=== PATIENT | female | born 1980 | race American Indian/Alaskan Native ===

== ENCOUNTER 2017-07-02 23:55 | Emergency (ER) | payer SELFPAY ==
[2017-07-03 00:01] VITALS: BP 93/74
[2017-07-03 01:02] LABS: HCG Qualitative,Urine Negative (Negative)
[2017-07-03 01:07] LABS: Bilirubin,Urine NEG (Negative); Blood,Urine LG (Negative); Color,Urine Yellow (Yellow); Mucus,Urine 3+ /HPF
[2017-07-03 01:09] LABS: RBC,Urine > 182.0 /HPF (0.0-6.0)
[2017-07-03 01:13] LABS: Benzodiazepines Screen,Urine PRESUMPTIVE NEGATIVE; Methadone Screen,Urine PRESUMPTIVE NEGATIVE; Opiate Screen,Urine PRESUMPTIVE NEGATIVE
[2017-07-03 01:31] LABS: Amphetamine Screen,Urine PRESUMPTIVE POSITIVE; Cannabinoid Screen,Urine PRESUMPTIVE POSITIVE; Cocaine Screen,Urine PRESUMPTIVE POSITIVE
[2017-07-03] MEDS ORDERED: TORADOL IV ONE (03:31)
--- NOTE | 2017-07-03 03:35 | Emergency Department Report ---
HPI - General Chief Complaint: Allergic Reaction Time Seen by Provider: 07/03/17 03:19 - HPI HPI: 36 yo female took a pill of her friend on accident. She now has pain in her back radiating to legs. No fever. No vomiting. No throat swelling. NO chest pain. No wheezing. ED Past Medical Hx - Past Medical History Previous Medical History?: No Additional medical history: MVP - Surgical History Past Surgical History?: Yes Additional Surgical History: TUBAL LIGATION - Social History Smoking Status: Never Smoker Substance Use Type: Marijuana - Medications Home Medications: Home Medications Medication Instructions Recorded Confirmed Last Taken Type No Known Home Medications [No 06/04/15 06/04/15 Unknown History Reported Home Medications] ED Review of Systems ROS: Stated complaint: MEDICAL CLEAR. Other details as noted in HPI Comment: All other systems reviewed and negative Constitutional: denies: chills Respiratory: denies: cough Cardiovascular: denies: chest pain Musculoskeletal: back pain Physical Exam - Physical Exam Vital Signs: Vital Signs 07/02/17 23:59 Temperature 98.2 F Pulse Rate 98 H Respiratory 17 Rate Blood Pressure 93/74 O2 Sat by Pulse 100 Oximetry General: General: Well-appearing, no acute distress HEENT: Normocephalic atraumatic pupils equal round and reactive to light anicteric sclera Nose: no rhinorrhea Oropharynx: Clear mucous membranes no lesions Neck: supple, no meningismus Chest: Clear to auscultation bilaterally no rales rhonchi no wheezes Cardiac: Regular rate and rhythm no murmurs no rubs no gallops Abdomen: Soft nontender nondistended positive bowel sounds no guarding Extremities: No cyanosis no clubbing no edema Neuro: Moves all extremities 4, no gross deficits Psychiatric: Alert and oriented 4 normal affect normal judgment normal insight ED Course Vital Signs 07/02/17 23:59 Temperature 98.2 F Pulse Rate 98 H Respiratory 17 Rate Blood Pressure 93/74 O2 Sat by Pulse 100 Oximetry ED Medical Decision Making - Medical Decision Making Patient had accidental pill ingestion. She was intending to take motrin for menstrual cramps. She took her friend's prescription medication. She denies suicidal ideation. She has diffuse pain without any abdominal tenderness. Discharged home in stable condition. No evidence of adverse reaction or anaphylaxis. Critical care attestation.: If time is entered above; I have spent that time in minutes in the direct care of this critically ill patient, excluding procedure time. ED Disposition Clinical Impression: Pain, Accidental drug ingestion Disposition: DC-01 TO HOME OR SELFCARE Is pt being admited?: No Does the pt Need Aspirin: No Condition: Stable Instructions: Leg Cramps (ED) Time of Disposition: 03:40
[2017-07-03] MEDS ORDERED: TORADOL ONE (05:53)
== END 2017-07-03 04:57 | disposition home or self-care (01) ==
LOC: ED 23:55
DX: T50.905A Adverse effect of unspecified drugs, medicaments and biological substances, initial encounter (principal); Y92.89 Other specified places as the place of occurrence of the external cause; F12.10 Cannabis abuse, uncomplicated
CPT/HCPCS: 80307; 81001; 81025; 96374; 96375; 99283; J1885; J2930

== ENCOUNTER 2017-08-06 23:37 | Emergency (ER) | payer SELFPAY ==
[2017-08-07 01:40] LABS: Hematocrit 27.2 % (30.3-42.9); Hemoglobin 8.4 gm/dl (10.1-14.3); Mean Corpuscular HGB Conc 31 % (30-34); Platelet Count 165 K/mm3 (140-440); Red Blood Count 4.02 M/mm3 (3.65-5.03)
[2017-08-07 01:45] LABS: BUN/Creatinine Ratio 17; Blood Urea Nitrogen 12 mg/dL (7-17); Calcium 8.6 mg/dL (8.4-10.2); Hemolysis Index 1
[2017-08-07 01:50] LABS: Mean Corpuscular Hemoglobin 21 pg (28-32); Mean Corpuscular Volume 68 fl (79-97); Red Cell Distribution Width 32.4 % (13.2-15.2)
[2017-08-07 02:27] VITALS: BP 132/83
--- NOTE | 2017-08-07 03:10 | Emergency Department Report ---
ED Chest Pain HPI - General Chief Complaint: Chest Pain Stated Complaint: CHEST PAIN Time Seen by Provider: 08/07/17 02:52 Source: patient Mode of arrival: Stretcher Limitations: No Limitations - History of Present Illness Initial Comments: Patient is 36 years old female with history of iron deficiency anemia and blood transfusion 2 month ago. Patient presented to the ER complaining of left-sided chest pain pressure associated with mild shortness of breath since yesterday. Patient stated that her pain is resolved now. Patient denied any fever or cough recently. No nausea no vomiting and no dizziness. MD Complaint: chest pain -: Last night Onset: during rest Severity scale (0 -10): 7 - Related Data Home Medications Medication Instructions Recorded Confirmed Last Taken No Known Home Medications [No 06/04/15 06/04/15 Unknown Reported Home Medications] Allergies Allergy/AdvReac Type Severity Reaction Status Date / Time diphenhydramine HCl Allergy Hives Verified 06/04/15 19:15 [From Benadryl] Heart Score - HEART Score History: Moderately suspicious EKG: Normal Age: < 45 Risk factors: No known risk factors Troponin: < normal limit HEART Score: 1 - Critical Actions Critical Actions: 0-3 pts:0.9-1.7%risk of adverse cardiac event.Candidate for discharge ED Review of Systems ROS: Stated complaint: CHEST PAIN Other details as noted in HPI Comment: All other systems reviewed and negative Constitutional: denies: chills, fever Respiratory: shortness of breath. denies: cough, orthopnea, SOB with exertion Cardiovascular: chest pain. denies: palpitations, dyspnea on exertion, orthopnea Gastrointestinal: denies: abdominal pain, nausea, vomiting ED Past Medical Hx - Past Medical History Additional medical history: MVP, ANEMIA - Surgical History Additional Surgical History: TUBAL LIGATION - Social History Smoking Status: Never Smoker Substance Use Type: None - Medications Home Medications: Home Medications Medication Instructions Recorded Confirmed Last Taken Type No Known Home Medications [No 06/04/15 06/04/15 Unknown History Reported Home Medications] ED Physical Exam - General Limitations: No Limitations General appearance: alert, in no apparent distress - Head Head exam: Present: atraumatic, normocephalic - Eye Eye exam: Present: normal appearance - ENT ENT exam: Present: normal exam, normal orophraynx - Neck Neck exam: Present: normal inspection, full ROM. Absent: tenderness, meningismus, lymphadenopathy, thyromegaly - Respiratory Respiratory exam: Present: normal lung sounds bilaterally. Absent: respiratory distress, wheezes, rales, rhonchi, stridor, accessory muscle use, decreased breath sounds, prolonged expiratory - Cardiovascular Cardiovascular Exam: Present: regular rate, normal rhythm, normal heart sounds - GI/Abdominal GI/Abdominal exam: Present: soft, normal bowel sounds. Absent: distended, tenderness, guarding, rebound, rigid, organomegaly, mass, bruit, pulsatile mass , hernia - Extremities Exam Extremities exam: Present: normal inspection, full ROM, normal capillary refill - Back Exam Back exam: Present: normal inspection, full ROM. Absent: CVA tenderness (R), CVA tenderness (L), muscle spasm, paraspinal tenderness, vertebral tenderness - Neurological Exam Neurological exam: Present: alert, oriented X3, CN II-XII intact, normal gait - Skin Skin exam: Present: warm, intact, normal color. Absent: cyanosis ED Course Vital Signs 08/07/17 08/07/17 08/07/17 00:11 00:41 02:26 Temperature 98.4 F 98.4 F 97.9 F Pulse Rate 51 L 51 L 50 L Respiratory 16 16 12 Rate Blood Pressure 135/72 135/72 Blood Pressure 132/83 [Left] O2 Sat by Pulse 100 100 100 Oximetry ED Medical Decision Making - Lab Data Result diagrams: 08/07/17 00:55 08/07/17 00:55 - EKG Data -: EKG Interpreted by Me EKG shows normal: sinus rhythm Rate: bradycardia - EKG Data Interpretation: no acute changes Critical care attestation.: If time is entered above; I have spent that time in minutes in the direct care of this critically ill patient, excluding procedure time. ED Disposition Clinical Impression: Anemia, Chest pain Disposition: DC-01 TO HOME OR SELFCARE Is pt being admited?: No Condition: Stable Instructions: Anemia (ED), Chest Pain (ED) Referrals: JANY HYATT MD [Primary Care Provider] - 3-5 Days
[2017-08-07 04:43] LABS: Band Neutrophils # (Manual) 0.1 K/mm3; Basophils % (Manual) 0 % (0.0-1.8); Total Cells Counted 100
[2017-08-07 04:44] LABS: Anisocytosis 1+; Hypochromasia 2+
[2017-08-07 04:45] LABS: Tear Drop Cells Few
[2017-08-07 04:46] LABS: Ovalocytes Few
== END 2017-08-07 03:37 | disposition home or self-care (01) ==
LOC: ED 23:37
DX: D64.9 Anemia, unspecified (principal); R07.9 Chest pain, unspecified; Z98.51 Tubal ligation status; Z88.8 Allergy status to other drugs, medicaments and biological substances
CPT/HCPCS: 36415; 80048; 84484; 84703; 85007; 85025; 93005; 93010; 99284